=== PATIENT | female | born 1985 | race Caucasian/White ===

== ENCOUNTER 2017-09-07 20:41 | Inpatient (IN) | payer OTHER ==
[~2017-09-07] VITALS: Ht 167.6 cm; Wt 63.2 kg
[2017-09-08] VITALS (13 sets, daily range): BP systolic 85–113; BP diastolic 54–79; PULSE 65–104; RESP 13–23; TEMP 98–100.4; O2SAT 13–99
--- NOTE | 2017-09-08 00:59 | HHI.HP ---
HPI Service Critical Care Medicine Primary Care Physician No Primary Care Physician Admission Diagnosis Diagnosis: Travel History International Travel<30 Days: No Contact w/Intl Traveler <30 Da: No Traveled to Known Affected Are: No History of Present Illness Records reviewed from outside hospital. 32-year-old female with history of IV drug use (heroin), cocaine abuse , prior seizure while in incarceration who presented to [facility] complaining of 2 day history of fever and back pain. She states she has been febrile for 2 days with temperature up to 104.8 yesterday. Her temp at outside hospital was 99.8. She complains of diffuse myalgias, "hurting all over", headache, dizziness, nausea, nonproductive cough, pain in her lower lumbar spine radiating to her right sacrum and down her right leg. She denies dysuria. She has had 2 episodes of diarrhea on 09/04, one episode in which she had fecal incontinence. No urinary incontinence, no saddle parasthesias. She feels her right calf is swollen. She states she had a seizure on July 24, 2017 while she was incarcerated. She is concerned that she was never evaluated for it. She said "they told me I would just stood up too fast". She was released from incarceration 09/04. She began to feel ill on that day and was hospitalized at [facility] from 09/04-09/07 during which time she say she had a CT brain. Results unknown. She left AMA. Today she presented to [facility] where workup demonstrated pancytopenia with white blood cell count of 1.7, hemoglobin 8.8, platelets 109. CRP is elevated at 27,ESR 58. Coags were normal. Urine drug screen positive for opiates, benzos, cocaine. Urinalysis negative for markers of infection, negative protein, negative ketones. TSH was normal at 2.6. Chest x-ray was negative electrolytes were normal and creatinine is 0.71. Glucose 92. AST mildly elevated at 46 but ALT and alkaline phosphatase normal. Pro-BNP 349. test negative. Blood culture was sent. she was tachycardic at 107 at outside hospital blood pressure was 127/85.b She received vancomycin 1 g IV, Zosyn 3.375 g IV, morphine 4 mg IV , Zofran 8 mg p.o at [facility]. Review of Systems Constitutional: COMPLAINS OF: Fever Respiratory: COMPLAINS OF: Cough Gastrointestinal: COMPLAINS OF: Diarrhea, Nausea Musculoskeletal: COMPLAINS OF: Muscle aches, Back pain, Neck pain Neurologic: COMPLAINS OF: Headache Past Family Social History Allergies: Coded Allergies: No Known Allergies (Unverified , 09/08/17) Past Medical History Hypertension Depression Sciatica affecting right lower extremity Heroin abuse Cocaine abuse "Arthritis left knee" Past Surgical History section ORIF left knee with repair of ligamentous injury with cadaveric ligament I&D of abscess on right leg in 2016 Reported Medications Xanax 2 mg p.o. twice daily Oxycodone 50 mill grams p.o. 3 times daily Lexapro 10 mg p.o. daily Amlodipine dose unknown HCTZ 25 mill grams p.o. daily Flexeril 10 mg p.o. daily Family History Patient denies significant family medical history Social History Smokes 1/4 pack of cigarettes per day History of IV drug use. She told me that her last drug use was in May. She disclosed to the nurse that she has been using IV drugs since she was released from incarceration Urine drug screen at outside hospital was positive for opiates, benzodiazepines , cocaine Incarcerated from May 04 - September 04, 2017 Physical Exam Physical Exam GENERAL: Well-nourished, well-developed patient who is alert and interactive, sitting up in ISC bed. SKIN: Warm and dry. No rash noted. No abscess. HEAD: Atraumatic. Normocephalic. EYES: Pupils equal and round, 2 mm reactive. No scleral icterus. No injection or drainage. ENT: No nasal bleeding or discharge. Mucous membranes pink and moist. NECK: Trachea midline. No JVD. CARDIOVASCULAR: Regular rate and rhythm. No murmurs rubs or gallops. RESPIRATORY: No accessory muscle use. Clear to auscultation. Breath sounds equal bilaterally. On room air GASTROINTESTINAL: Abdomen soft, non-tender, nondistended. Bowel sounds present MUSCULOSKELETAL: Extremities without clubbing, cyanosis.. No obvious deformities. There is tenderness midline over spine at L4-L5 and right sacrum. There is no warmth, erythema, induration mass. Perhaps a trace edema of the right calf or ankle. NEUROLOGICAL: Awake and alert. Oriented 3. No obvious cranial nerve deficits. Strength 5 out of 5 throughout all extremities including normal strength at hip flexion, ankle plantar and dorsiflexion and dorsiflexion of first toe. DTRs are intact bilaterally.. No saddle paresthesias. Perineal sensation is intact. Laboratory Laboratory Tests Test 09/08/17 00:00 Septic Shock Reassessment Septic shock perfusion: reassessment completed Caprini VTE Risk Assessment Caprini VTE Risk Assessment: Mod/High Risk (score >= 2) VTE Pharm Contraindication: Documented Caprini Risk Assessment Model Point Value = 1 Point Value = 2 Point Value = 3 Point Value = 5 Age 41-60 Minor surgery BMI > 25 kg/m2 Swollen legs Varicose veins or History of unexplained or recurrent spontaneous Oral contraceptives or hormone replacement Sepsis (< 1 month) Serious lung disease, including pneumonia (< 1 month) Abnormal pulmonary function Acute myocardial infarction Congestive heart failure (< 1 month) History of inflammatory bowel disease Medical patient at bed rest Age 61-74 Arthroscopic surgery Major open surgery (> 45 min) Laparoscopic surgery (> 45 min) Malignancy Confined to bed (> 72 hours) Immobilizing plaster cast Central venous access Age >= 75 History of VTE Family history of VTE Factor V Leiden Prothrombin [id number] Lupus anticoagulant Anticardiolipin antibodies Elevated serum homocysteine Heparin-induced thrombocytopenia Other congenital or acquired thrombophilia Stroke (< 1 month) Elective arthroplasty Hip, pelvis, or leg fracture Acute spinal cord injury (< 1 month) Prophylaxis Regimen Total Risk Factor Score Risk Level Prophylaxis Regimen 0-1 Low Early ambulation 2 Moderate Order ONE of the following: *Sequential Compression Device (SCD) *Heparin 5000 units SQ BID 3-4 Higher Order ONE of the following medications: *Heparin 5000 units SQ TID *Enoxaparin/Lovenox 40 mg SQ daily (WT < 150 kg, CrCl > 30 mL/min) *Enoxaparin/Lovenox 30 mg SQ daily (WT < 150 kg, CrCl > 10-29 mL/min) *Enoxaparin/Lovenox 30 mg SQ BID (WT < 150 kg, CrCl > 30 mL/min) AND/OR *Sequential Compression Device (SCD) 5 or more Highest Order ONE of the following medications: *Heparin 5000 units SQ TID (Preferred with Epidurals) *Enoxaparin/Lovenox 40 mg SQ daily (WT < 150 kg, CrCl > 30 mL/min) *Enoxaparin/Lovenox 30 mg SQ daily (WT < 150 kg, CrCl > 10-29 mL/min) *Enoxaparin/Lovenox 30 mg SQ BID (WT < 150 kg, CrCl > 30 mL/min) AND *Sequential Compression Device (SCD) Assessment and Plan Assessment and Plan NEURO: Opioid abuse Cocaine abuse Benzodiazepine abuse Remote seizure Back pain Sciatica Anxiety Continue home medications of Flexeril 10 mg p.o. daily, oxycodone 15 mg p.o. every 8 hours. Will adjust Xanax is 1 mg p.o. every 8 hours with hold orders based on mental status. Hold Lexapro Will obtain MRI brain given remote history of seizure however this seizure may well of been related to stimulant abuse or benzodiazepine withdrawal. Obtain MRI spine to evaluate for evidence of epidural abscess. Empiric antibiotics as per below RESP: Tobacco abuse On room air Chest x-ray outside hospital negative CV: Essential hypertension Hold HCTZ for now. Hold Norvasc 5 mg po daily Bolus 1 L normal saline. Glucose is low. Placed on D5 NS with 20 mg of KCl per liter at 100 mL/h. 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 FEN/RENAL: Voiding CPK is normal ID: Receive Zosyn and vancomycin at outside hospital. We will continue cefepime/ vancomycin. Follow-up blood cultures and at outside hospital. Repeat blood cultures have been sent here. HEME: Pancytopenia Complains of swelling right lower extremity. Ultrasound right lower extremity Recheck coags and fibrinogen which are in normal limits. ENDO: Euglycemic. TSH at outside hospital was normal PROPH: SCDs for DVT prophylaxis. Avoid pharmacology DVT prophylaxis at this time due to thrombocytopenia and workup for epidural abscess. Famotidine po for stress ulcer prophylaxis ACCESS: Peripheral IV providing adequate access at this time Full code Level 3 H&P Code Status Full code Brianna Rodrigues MD September 08, 2017 00:59 Ayaz Dean MD September 08, 2017 06:39
[2017-09-08] MEDS ORDERED: SODIUM CHLOR 0.9% 1000 ML INJ 1,000 ML IV SCH (01:50)
[2017-09-08] MEDS ORDERED: SENNOSIDES 8.6 MG TAB PO PRN (02:00)
[2017-09-08] MEDS ORDERED: ACETAMINOPHEN 325 MG TAB PO PRN (02:00)
[2017-09-08] MEDS ORDERED: NURSING INFORMATION XX SCH (02:00)
[2017-09-08] MEDS ORDERED: BISACODYL 10 MG SUPP RECTAL PRN (02:00)
[2017-09-08] MEDS ORDERED: LACTULOSE SYRUP 20 GM/30 ML CUP PO PRN (02:00)
[2017-09-08] MEDS ORDERED: MAGNESIUM HYDROXIDE SUSP 30 ML CUP PO PRN (02:00)
[2017-09-08] MEDS ORDERED: RESP: ALBUTEROL 2.5 MG/IPRATROPIUM 0.5 MG NEB (PRN) INH (02:00)
[2017-09-08] MEDS ORDERED: CHLORHEXIDINE GLUCONATE 2 % 1 PACK (2 CLOTHS) TOP PRN (02:00)
[2017-09-08] MEDS ORDERED: Vancomycin Consult Pharmacy 1 EA OTHER SCH (02:15)
[2017-09-08] MEDS: ALPRAZolam 1 MG TAB PO SCH ×3 (02:27→19:48)
[2017-09-08] MEDS: CEFEPIME INJ 2,000 MG in SODIUM CHLORIDE 0.9% INJ 100 ML IV SCH ×3 (03:17→19:49)
[2017-09-08] MEDS: CHLORHEXIDINE GLUCONATE 2 % 1 PACK (2 CLOTHS) TOP SCH (03:17)
[2017-09-08 03:41] LABS: ALBUMIN 3.5 GM/DL (3.4-5.0); ALT (GPT) 39 U/L (10-53); AST (GOT) 46 U/L (15-37); BICARBONATE 27.2 MEQ/L (21.0-32.0); BLOOD UREA NITROGEN 7 MG/DL (7-18); CALCIUM 8.3 MG/DL (8.5-10.1); CHLORIDE 102 MEQ/L (98-107); CREATININE 0.82 MG/DL (0.50-1.00); GLOMERULAR FILTRATION RATE 82 ML/MIN (>89); GLUCOSE,RANDOM 69 MG/DL (74-106); MAGNESIUM 2.2 MG/DL (1.5-2.5); SODIUM (NA) 138 MEQ/L (136-145)
[2017-09-08 03:44] LABS: ALKALINE PHOSPHATASE 63 U/L (45-117); PHOSPHORUS 4.5 MG/DL (2.5-4.9); TOTAL BILIRUBIN ADULT 0.3 MG/DL (0.2-1.0)
[2017-09-08] MEDS ORDERED: DEXTROSE 50% IN WATER 50 ML VIAL(D50) IV PUSH ONE (04:00)
[2017-09-08] MEDS: D5-NS + KCL 20 MEQ INJ 1,000 ML IV SCH ×2 (04:25→14:00)
[2017-09-08] MEDS ORDERED: SODIUM CHLOR 0.9% 1000 ML INJ 1,000 ML IV ONE (05:30)
[2017-09-08 05:57] LABS: BASOPHIL % 0.4 % (0.0-2.0); EOSINOPHIL % 1.4 % (0.0-4.0); HEMATOCRIT 21.7 % (35.0-46.0); HEMOGLOBIN 7.5 GM/DL (11.6-15.3); LYMPH % 38.5 % (9.0-44.0); LYMPHOCYTE # 0.8 TH/MM3 (1.0-4.8); MEAN CELL VOLUME 87.4 FL (80.0-100.0); MEAN CORPUSCULAR HEMOGLOBIN 30.1 PG (27.0-34.0); MEAN CORPUSCULAR HGB CONC 34.5 % (32.0-36.0); MEAN PLATELET VOLUME 8.9 FL (7.0-11.0); MONO % 13.1 % (0.0-8.0); MONOCYTE # 0.3 TH/MM3 (0-0.9); NEUT % 46.6 % (16.0-70.0); PLATELET COUNT 127 TH/MM3 (150-450); RED BLOOD COUNT 2.48 MIL/MM3 (4.00-5.30); RED CELL DISTRIBUTION WIDTH 13.6 % (11.6-17.2); WHITE BLOOD COUNT 2.1 TH/MM3 (4.0-11.0)
[2017-09-08] MEDS ORDERED: CYCLOBENZAPRINE HCL 10 MG TAB PO SCH (06:00)
[2017-09-08 06:06] LABS: RETIC # 68.5 MIL/L (20.0-150.0); RETIC % 2.7 % (0.4-3.0)
--- NOTE | 2017-09-08 06:18 | HHI.CCPN ---
Subjective Remarks/Hospital Course 32-year-old female with history of IV drug use (heroin), cocaine abuse , prior seizure while in incarceration who presented to [facility] complaining of 2 day history of fever and back pain. She states she has been febrile for 2 days with temperature up to 104.8 yesterday. Her temp at outside hospital was 99.8. She complains of diffuse myalgias, "hurting all over", headache, dizziness, nausea, nonproductive cough, pain in her lower lumbar spine radiating to her right sacrum and down her right leg. She denies dysuria. She has had 2 episodes of diarrhea on 09/04, one episode in which she had fecal incontinence. No urinary incontinence, no saddle parasthesias. She feels her right calf is swollen. She states she had a seizure on July 24, 2017 while she was incarcerated. She is concerned that she was never evaluated for it. She said "they told me I would just stood up too fast". She was released from incarceration 09/04. She began to feel ill on that day and was hospitalized at [facility] from 09/04-09/07 during which time she say she had a CT brain. Results unknown. She left AMA. Today she presented to [facility] where workup demonstrated pancytopenia with white blood cell count of 1.7, hemoglobin 8.8, platelets 109. CRP is elevated at 27,ESR 58. Coags were normal. Urine drug screen positive for opiates, benzos, cocaine. Urinalysis negative for markers of infection, negative protein, negative ketones. TSH was normal at 2.6. Chest x-ray was negative electrolytes were normal and creatinine is 0.71. Glucose 92. AST mildly elevated at 46 but ALT and alkaline phosphatase normal. Pro-BNP 349. test negative. Blood culture was sent. she was tachycardic at 107 at outside hospital blood pressure was 127/85.b She received vancomycin 1 g IV, Zosyn 3.375 g IV, morphine 4 mg IV , Zofran 8 mg p.o at [facility]. SUBJECTIVE: 09/08: Currently requesting oxycodone frequently. Does not appear to be in pain. Appears to be neurologically intact but falls asleep very easily. Very confusing subjectively weaker on right upper lower extremity on my examination. Did not identify track joy briefly. Afebrile. Awaiting MRI scans and ultrasound scans Objective Vital Signs Date Time Temp Pulse Resp B/P (MAP) Pulse Ox O2 Delivery O2 Flow Rate FiO2 09/08/17 02:00 78 09/08/17 00:00 99.3 23 101/62 (75 97 Result Diagram: 09/08/17 0527 09/08/17 0256 Other Results Microbiology Date/Time Source Procedure Growth Status 09/08/17 04:40 Blood Peripheral Aerobic Blood Culture Pending Received 09/08/17 04:40 Blood Peripheral Anaerobic Blood Culture Pending Received Objective Remarks GENERAL: 32-year-old female currently resting in bed in no acute distress in room air SKIN: Warm and dry. Do not appreciate any puncture joy or subcutaneous abscesses HEAD: Atraumatic. Normocephalic. EYES: Pupils equal and round about 2 mm bilaterally reactive to 1. No scleral icterus. No injection or drainage. ENT: No nasal bleeding or discharge. Mucous membranes pink and moist. Oropharynx without erythema NECK: Trachea midline. No JVD. CARDIOVASCULAR: Regular rate and rhythm. S1, S2 no S4. 1/6 murmur right-sided. RESPIRATORY: Clear to auscultation. Breath sounds equal bilaterally. GASTROINTESTINAL: Abdomen soft, non-tender, nondistended. Hypoactive bowel sounds are appreciated MUSCULOSKELETAL: Extremities with trace right upper extremity edema edema. No obvious deformities. NEUROLOGICAL: Awake and alert but falls asleep easily. Requesting benzodiazepines and opiates frequently.. No obvious cranial nerve deficits. Definitely pronator drift. Right upper lower extremity strength 4-5.. Left side upper lower extremity 5 out of 5. Normal sensation. Gait not assessed. Positive pronator drift bilaterally but difficult assessment. Urinary Catheter: No Assessment to: Continue Vascular Central Line Catheter: No Assessment to: Continue A/P Assessment and Plan NEURO/PSYCH: Depression/anxiety Opioid chronic use/abuse Cocaine abuse Benzodiazepine chronic use/abuse Remote seizure Chronic low back pain Sciatica Home medications include alprazolam 2 mg p.o. twice daily, oxycodone 50? twice daily and cyclobenzaprine 10 mg 3 times daily Currently acetaminophen 600 mg p.o. every 6 hours. Fever Currently on cyclobenzaprine 10 mg p.o. every 8 hours muscle relaxant Currently on oxycodone 15 mg p.o. every 8 hours as needed pain management On alprazolam 1 mg every 8 hours scheduled Holding escitalopram 10 mg p.o. daily/home medication for depression as good possible lower seizure threshold. MRI brain currently pending RESP: Tobacco abuse Nasal cannula to maintain saturations greater than or equal to 92% Incentive spirometry while awake As needed albuterol aerosols every 2 hours as needed dyspnea Tobacco cessation self-evaluation provided the patient On room air Chest x-ray outside hospital negative reported for cardiopulmonary disease CV: Essential hypertension Lactic acidosis -resolved Home medications include amlodipine unknown dose and hydrochlorothiazide Follow-up on EKG Follow-up 2D echo Currently D5 normal saline with 20 mEq of potassium chloride 100 cc an hour GI: Diarrhea AST elevation NPO except for medication Recheck CMP and lipase Famotidine for GI prophylaxis Docusate sodium/senna 1 tablet twice daily for bowel regimen 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 /RENAL: Creatinine currently within normal limits Monitor urine output Accurate I's and O's No indication for [place] catheter ID: Sepsis Receive piperacillin/tazobactam and vancomycin at outside hospital. We will continue cefepime/vancomycin and appropriate renal dose. Blood cultures 2 09/08 pending UA pending HEME: Leukopenia Normocytic anemia Thrombocytopenia Monocytosis Complains of swelling right lower extremity. Ultrasound right lower extremity Peripheral smear currently pending Fibrinogen normal. Check PT/INR/PTT Haptoglobin 208. LDH pending ENDO: Euglycemic. TSH at outside hospital was within normal limits reported MSK: PT evaluate and treat FEN: Replace electrolytes as clinically indicated PROPH: SCDs for DVT prophylaxis. Avoid pharmacology DVT prophylaxis at this time due to thrombocytopenia. ACCESS: Peripheral IV providing adequate access at this time Patient is stable from a critical care medicine standpoint. We will assign care to hospitalist in a.m. 09/09/2017. Will follow up on MRI scans today which are ordered stat. If abscess present will transfer to Ayaz Chaudhari MD September 08, 2017 06:18
[2017-09-08] MEDS ORDERED: RESP: ALBUTEROL 2.5 MG/3 ML NEB (PRN) NEB (06:45)
[2017-09-08] MEDS ORDERED: LACTATED RINGER'S 1000 ML INJ 1,000 ML IV ONE (07:00)
[2017-09-08 08:31] LABS: INTERNATIONAL NORMALIZED RATIO 1.1 RATIO
--- NOTE | 2017-09-08 08:38 | RADRPT ---
EXAM DATE: 09/08/2017 8:34 AM EDT AGE/SEX: 32 years / Female INDICATIONS: Right leg pain. CLINICAL DATA: This is the patient's initial encounter. Patient reports that signs and symptoms have been present for 1 day and indicates a pain score of 0/10. MEDICAL/SURGICAL HISTORY: . Seizures. HTN. GERD. . section. Tubal ligation. Knee french rgery. COMPARISON: No prior [place] exams available for comparison. No external comparison. TECHNIQUE: Venous ultrasound of both lower extremities was performed from the inguinal ligament to t he proximal calf. Real-time, color Doppler and spectral tracing, compression and augmentation techni ques were used. FINDINGS: There is normal compressibility of the deep venous system from the inguinal region to the proximal ca lf. No echogenic clot is seen in the lumen of the common femoral, femoral, popliteal, and posterior tibial veins. There is a normal response of the venous system to proximal and distal augmentation an d respiration. CONCLUSION: No evidence of DVT. Electronically signed by: Lencho Obando MD 09/08/2017 8:37 AM EDT
[2017-09-08] MEDS: SODIUM CHLORIDE 0.9% FLUSH 10 ML FLUSH IV FLUSH SCH ×2 (08:43→20:47)
[2017-09-08 08:57] LABS: TROPONIN I LESS THAN 0.02 NG/ML (0.02-0.05)
[2017-09-08] MEDS ORDERED: amLODIPine BESYLATE 5 MG TAB PO SCH (09:00)
[2017-09-08] MEDS: DOCUSATE SODIUM 50 MG/SENNA 8.6 MG TAB PO SCH ×2 (09:17→19:48)
[2017-09-08] MEDS: FAMOTIDINE 20 MG TAB PO SCH ×2 (09:17→19:48)
[2017-09-08] MEDS: VANCOMYCIN 1,000 MG/NS 250 ML IV SCH ×4 (09:17→20:46)
--- NOTE | 2017-09-08 09:25 | RADRPT ---
EXAM DATE: 09/08/2017 9:06 AM EDT AGE/SEX: 32 years / Female INDICATIONS: Short of breath CLINICAL DATA: This is the patient's initial encounter. Patient reports that signs and symptoms have been present for 1 day and indicates a pain score of Nonresponsive. MEDICAL/SURGICAL HISTORY: Hypertension. seizure, iv drug abuse section. ORIF left kne e COMPARISON: No prior [place] exams available for comparison. FINDINGS: Patchy airspace disease in the left lower lung zone. Cardiomegaly small contours are within normal li mits. Bony thorax is intact. CONCLUSION: 1. Minimal patchy airspace disease in the left lower lung zone which may be atelectasis. However, de veloping pneumonia cannot be excluded in the appropriate clinical setting. If there is continued clin ical uncertainty, consider formal PA and lateral views of the chest with maximal inspiratory effort. Electronically signed by: Rich Schmid MD 09/08/2017 9:23 AM EDT
[2017-09-08] MEDS ORDERED: GADODIAMIDE PF 287 MG/ML 5 ML VIAL (for RAD MRI) IVCONTRAST ONE (11:09)
--- NOTE | 2017-09-08 11:26 | RADRPT ---
EXAM DATE: 09/08/2017 11:19 AM EDT AGE/SEX: 32 years / Female INDICATIONS: Abscess. CLINICAL DATA: This is the patient's subsequent encounter. Patient reports that signs and symptoms h ave been present for 2 days and indicates a pain score of 6/10. MEDICAL/SURGICAL HISTORY: Hypertension. section. Tubal ligation. knee COMPARISON: No prior [place] exams available for comparison. No external comparison. TECHNIQUE: Multiplanar, multisequence MRI examination of the cervical spine was performed without an d with 13 ml Omniscan (gadodiamide) contrast as a single exam dose. FINDINGS: Mild disc bulges present between C3 and C5. Normal alignment. No fracture or spondylolisthesis. There is no cervical canal stenosis. No cord impingement or cord edema. Postcontrast no abnormal enhancing lesions are seen within the cervical spine. No epidural fluid mandy ections. CONCLUSION: 1. Unremarkable cervical spine MRI with and without contrast. Electronically signed by: Dez Salinas MD 09/08/2017 11:25 AM EDT
--- NOTE | 2017-09-08 11:29 | RADRPT ---
EXAM DATE: 09/08/2017 11:16 AM EDT AGE/SEX: 32 years / Female INDICATIONS: Abscess. CLINICAL DATA: This is the patient's subsequent encounter. Patient reports that signs and symptoms h ave been present for 2 days and indicates a pain score of 6/10. MEDICAL/SURGICAL HISTORY: Hypertension. section. Tubal ligation. knee surgery COMPARISON: No prior [place] exams available for comparison. No external comparison. TECHNIQUE: Multiplanar, multisequence MRI of the thoracic spine was performed without and with 13 ml Omniscan (gadodiamide) contrast as a single exam dose. FINDINGS: No abnormal enhancing lesions are seen within the thoracic spine postcontrast. Alignment is within normal limits. There are no discrete disc protrusions. No canal or significant fo raminal stenosis. No acute fracture or spondylolisthesis. CONCLUSION: 1. No acute findings. No epidural fluid collections. MRI thoracic spine with and without contrast wi thin normal limits for age. Electronically signed by: Dez Salinas MD 09/08/2017 11:27 AM EDT
--- NOTE | 2017-09-08 11:40 | RADRPT ---
EXAM DATE: 09/08/2017 11:33 AM EDT AGE/SEX: 32 years / Female INDICATIONS: Seizures. CLINICAL DATA: This is the patient's subsequent encounter. Patient reports that signs and symptoms h ave been present for 2 days and indicates a pain score of 6/10. MEDICAL/SURGICAL HISTORY: Hypertension. section. Tubal ligation. knee surgery COMPARISON: No prior [place] exams available for comparison. TECHNIQUE: Multiplanar, multisequence examination of the brain was performed without contrast. FINDINGS: No intracranial mass, hemorrhage or shift. No hydrocephalus. No abnormal extra-axial fluid collection s are present. There is no evidence for recent infarction. Sella is normal. Visualized sinuses are clear except for some mucosal thickening in the left maxillary sinus. CONCLUSION: 1. No acute intracranial abnormalities. Left maxillary sinus mucosal thickening. Electronically signed by: Dez Salinas MD 09/08/2017 11:39 AM EDT
--- NOTE | 2017-09-08 12:07 | RADRPT ---
EXAM DATE: 09/08/2017 12:00 PM EDT AGE/SEX: 32 years / Female INDICATIONS: Abscess. CLINICAL DATA: This is the patient's subsequent encounter. Patient reports that signs and symptoms h ave been present for 2 days and indicates a pain score of 2/10. MEDICAL/SURGICAL HISTORY: Hypertension. section. Tubal ligation. knee surgery COMPARISON: No prior exams available for comparison. TECHNIQUE: Multiplanar, multisequence MRI examination of the lumbar spine was performed without and with 13 ml Omniscan (gadodiamide) contrast as a single exam dose. FINDINGS: The most caudal-appearing lumbar vertebra is numbered as L5. VERTEBRA: Homogeneous signal. Normal alignment. There is disc dehydration at L4-5 and L5-S1. No com pression fracture injuries are demonstrated. No abnormal bone marrow edema is demonstrated. No parasp inal soft tissue swelling. CONUS: Normal level and configuration. POST-CONTRAST: No abnormal areas of contrast enhancement are seen. T12-L1: The thecal sac has a normal diameter. No evidence of disc bulge or protrusion. The neural foramina are patent bilaterally. L1-L2: The thecal sac has a normal diameter. No evidence of disc bulge or protrusion. The neural foramina are patent bilaterally. L2-L3: The thecal sac has a normal diameter. No evidence of disc bulge or protrusion. The neural foramina are patent bilaterally. L3-L4: The thecal sac has a normal diameter. No evidence of disc bulge or protrusion. The neural foramina are patent bilaterally. L4-L5: Mild broad-based and left lateral bulging with mild narrowing of the left neural foramina. T he right neural foramina is patent. There is bilateral facet arthritis. L5-S1: Mild focal central bulging with some mild left lateral bulging. The neural foramina are gomez nt bilaterally. Mild facet arthritis. CONCLUSION: 1. There is mild broad-based bulging and left lateral bulging at L4-5. 2. Mild focal central bulging with some mild left lateral bulging at L5-S1 3. There is disc dehydration at L4-5 and L5-S1. Electronically signed by: Femi Silveira MD 09/08/2017 12:06 PM EDT
[2017-09-08] MEDS: SODIUM CHLORIDE 0.9% FLUSH 10 ML FLUSH IV FLUSH PRN (19:48)
[2017-09-08] MEDS ORDERED: ACETAMINOPHEN 1000 MG/100 ML 100 ML IV SCH (22:45)
[2017-09-09] VITALS: BP 108/51; PULSE 105; RESP 18; TEMP 100.5; O2SAT 94
[2017-09-09] MEDS: ALPRAZolam 1 MG TAB PO SCH ×3 (02:15→18:09)
[2017-09-09] MEDS: CEFEPIME INJ 2,000 MG in SODIUM CHLORIDE 0.9% INJ 100 ML IV SCH ×3 (03:20→18:10)
[2017-09-09] MEDS: CHLORHEXIDINE GLUCONATE 2 % 1 PACK (2 CLOTHS) TOP SCH (04:00)
--- NOTE | 2017-09-09 07:26 | EKG ---
Date Performed: 09/08/2017 Time Performed: 08:30:42 PTAGE: 32 years EKG: Sinus rhythm NORMAL ECG NO PREVIOUS TRACING DOCTOR: Jose L Perez Interpretating Date/Time 09/09/2017 07:21:48
[2017-09-09 08:00] VITALS: BP 96/79; PULSE 77; RESP 21; TEMP 98.9; O2SAT 93
[2017-09-09] MEDS: CYCLOBENZAPRINE HCL 10 MG TAB PO SCH (08:20)
[2017-09-09] MEDS: FAMOTIDINE 20 MG TAB PO SCH ×2 (08:21→21:19)
[2017-09-09] MEDS: DOCUSATE SODIUM 50 MG/SENNA 8.6 MG TAB PO SCH ×2 (08:21→21:20)
[2017-09-09] MEDS: SODIUM CHLORIDE 0.9% FLUSH 10 ML FLUSH IV FLUSH SCH ×2 (08:22→21:20)
[2017-09-09] MEDS: VANCOMYCIN 1,000 MG/NS 250 ML IV SCH ×4 (08:22→21:00)
[2017-09-09] MEDS ORDERED: PHARMACY ORDERED LAB ONE ×2 (08:45→20:45)
[2017-09-09] MEDS: D5-NS + KCL 20 MEQ INJ 1,000 ML IV SCH ×3 (10:00→21:20)
[2017-09-09 12:11] VITALS: BP 102/62; PULSE 76; RESP 16; TEMP 97.8; O2SAT 93
--- NOTE | 2017-09-09 13:14 | HHI.PR ---
Subjective Remarks Primary complaint today is pain. Fevers are present overnight. Patient is on cefepime and vancomycin. Possible pneumonia on imaging. Patient is being evaluated for infective endocarditis. She is at risk for infective endocarditis due to IV drug abuse. Objective Vital Signs Date Time Temp Pulse Resp B/P (MAP) Pulse Ox O2 Delivery O2 Flow Rate FiO2 09/09/17 12:11 97.8 76 16 102/62 (75) 93 09/09/17 08:00 98.9 77 21 96/79 (85) 93 09/09/17 07:59 Room Air 09/09/17 00:00 100.5 105 18 108/51 (70) 94 09/08/17 22:00 104 09/08/17 20:00 95 Room Air 09/08/17 20:00 96 09/08/17 20:00 100.3 96 20 106/60 (75) 95 09/08/17 18:00 84 09/08/17 16:00 98.8 85 13 94/58 (70) 96 09/08/17 16:00 84 09/08/17 14:00 97 09/08/17 13:38 10 I/O 09/08/17 09/08/17 09/08/17 09/09/17 09/09/17 09/09/17 07:00 15:00 23:00 07:00 15:00 23:00 Intake Total 356 ml 1250 ml 930 ml 1200 ml Balance 356 ml 1250 ml 930 ml 1200 ml Intake Oral 480 ml 1000 ml IV Total 356 ml 1250 ml 450 ml 200 ml # Voids 1 1 4 # Bowel Movements 0 0 0 Result Diagram: 09/08/17 0527 09/08/17 0256 Objective Remarks GENERAL: NAD, A&Ox3 HEAD: Normocephalic. NECK: Supple, trachea midline. No lymphadenopathy. EYES: No scleral icterus. No injection or drainage. CARDIOVASCULAR: Regular rate and rhythm without murmurs, gallops, or rubs. RESPIRATORY: Breath sounds equal bilaterally. No accessory muscle use. GASTROINTESTINAL: Abdomen soft, non-tender, nondistended. MUSCULOSKELETAL: No cyanosis, or edema. SKIN: Warm and dry. NEURO: No focal neurological deficitis. A/P Problem List: (1) Sepsis ICD Code: A41.9 - Sepsis, unspecified organism Assessment and Plan 32-year-old female admitted secondary to sepsis. Sepsis Infective endocarditis suspected Pneumonia present, possible septic emboli Continue cefepime Continue vancomycin Echocardiogram pending Continue pain treatments as needed IV drug abuse history Opioid abuse history Cocaine abuse history Benzodiazepine abuse history Monitor for withdrawals Screen for hepatitis C Patient declines HIV screening Depression/anxiety Opioid chronic use/abuse Cocaine abuse Benzodiazepine chronic use/abuse Remote seizure Likely drug abuse related Follow clinically Chronic low back pain Sciatica Follow clinically Tobacco abuse Patient counseled to quit smoking Essential hypertension Follow BP Low BPs presently Holding amlodipine and HCTZ Diarrhea Resolved Follow for recurrence AST elevation Follow LFTs Hep C screen Leukopenia Normocytic anemia Thrombocytopenia Monocytosis Improving Follow CBC Treat infection, as above DVT Prophylaxis SCDs Consider anticoagulation once stabilized and bleed risks decline Don Garcia MD September 09, 2017 13:14
[2017-09-09 15:53] VITALS: BP 104/63; PULSE 76; RESP 20; TEMP 98.6; O2SAT 95
[2017-09-09 17:18] LABS: AUTOMATED NEUTROPHIL # 0.6 TH/MM3 (1.8-7.7); BASOPHIL % 0.5 % (0.0-2.0); EOSINOPHIL % 2.2 % (0.0-4.0); HEMATOCRIT 23.1 % (35.0-46.0); HEMOGLOBIN 7.8 GM/DL (11.6-15.3); LYMPH % 45.9 % (9.0-44.0); LYMPHOCYTE # 0.8 TH/MM3 (1.0-4.8); MEAN CELL VOLUME 87.5 FL (80.0-100.0); MEAN CORPUSCULAR HEMOGLOBIN 29.5 PG (27.0-34.0); MEAN CORPUSCULAR HGB CONC 33.7 % (32.0-36.0); MEAN PLATELET VOLUME 8.6 FL (7.0-11.0); MONO % 17.1 % (0.0-8.0); MONOCYTE # 0.3 TH/MM3 (0-0.9); NEUT % 34.3 % (16.0-70.0); PLATELET COUNT 161 TH/MM3 (150-450); RED BLOOD COUNT 2.64 MIL/MM3 (4.00-5.30); RED CELL DISTRIBUTION WIDTH 13.7 % (11.6-17.2); WHITE BLOOD COUNT 1.7 TH/MM3 (4.0-11.0)
[2017-09-09 17:36] LABS: BICARBONATE 29.7 MEQ/L (21.0-32.0); CALCIUM 8.1 MG/DL (8.5-10.1); CREATININE 0.56 MG/DL (0.50-1.00); MAGNESIUM 2.6 MG/DL (1.5-2.5); PHOSPHORUS 4.4 MG/DL (2.5-4.9)
[2017-09-09 17:43] LABS: BANDS 2 % (0-6); LYMPHOCYTES 49 % (9-44); MONOCYTES 11 % (0-8); NEUTROPHIL # MANUAL DIFF 0.7 TH/MM3 (1.8-7.7); OVALOCYTES 1+ (NORMAL); POLYS (SEG NEUTROPHILS) 37 % (16-70)
[2017-09-09 19:34] VITALS: O2SAT 94
[2017-09-09 20:29] VITALS: BP 120/62; RESP 20; TEMP 98
[2017-09-10] VITALS (8 sets, daily range): BP systolic 105–124; BP diastolic 57–79; PULSE 85–102; RESP 16–20; TEMP 98–99.3; O2SAT 93–99
[2017-09-10] MEDS: ALPRAZolam 1 MG TAB PO SCH ×3 (02:15→17:42)
[2017-09-10] MEDS: SODIUM CHLORIDE 0.9% FLUSH 10 ML FLUSH IV FLUSH PRN (02:51)
[2017-09-10] MEDS: CEFEPIME INJ 2,000 MG in SODIUM CHLORIDE 0.9% INJ 100 ML IV SCH ×3 (02:51→17:43)
[2017-09-10] MEDS: CHLORHEXIDINE GLUCONATE 2 % 1 PACK (2 CLOTHS) TOP SCH (04:00)
[2017-09-10] MEDS: D5-NS + KCL 20 MEQ INJ 1,000 ML IV SCH ×2 (06:00→16:00)
[2017-09-10] MEDS: VANCOMYCIN 1,000 MG/NS 250 ML IV SCH ×6 (06:00→21:57)
[2017-09-10 06:51] LABS: BASOPHIL % 0.4 % (0.0-2.0); EOSINOPHIL # 0.1 TH/MM3 (0-0.4); EOSINOPHIL % 2.8 % (0.0-4.0); HEMATOCRIT 26.2 % (35.0-46.0); HEMOGLOBIN 8.9 GM/DL (11.6-15.3); LYMPH % 40.2 % (9.0-44.0); MEAN CELL VOLUME 86.1 FL (80.0-100.0); MEAN CORPUSCULAR HEMOGLOBIN 29.4 PG (27.0-34.0); MEAN CORPUSCULAR HGB CONC 34.2 % (32.0-36.0); MEAN PLATELET VOLUME 9.8 FL (7.0-11.0); MONOCYTE # 0.3 TH/MM3 (0-0.9); NEUT % 43.6 % (16.0-70.0); PLATELET COUNT 128 TH/MM3 (150-450); RED BLOOD COUNT 3.04 MIL/MM3 (4.00-5.30); WHITE BLOOD COUNT 2.4 TH/MM3 (4.0-11.0)
[2017-09-10 07:15] LABS: AST (GOT) 25 U/L (15-37); BLOOD UREA NITROGEN 6 MG/DL (7-18); CALCIUM 8.2 MG/DL (8.5-10.1); CHLORIDE 105 MEQ/L (98-107); CREATININE 0.64 MG/DL (0.50-1.00); GLOMERULAR FILTRATION RATE 109 ML/MIN (>89); GLUCOSE,RANDOM 84 MG/DL (74-106); SODIUM (NA) 141 MEQ/L (136-145)
[2017-09-10 07:18] LABS: ALKALINE PHOSPHATASE 52 U/L (45-117); ALT (GPT) 22 U/L (10-53); TOTAL BILIRUBIN ADULT 0.3 MG/DL (0.2-1.0); TOTAL PROTEIN 6.7 GM/DL (6.4-8.2)
[2017-09-10] MEDS: FAMOTIDINE 20 MG TAB PO SCH ×2 (09:00→21:00)
[2017-09-10] MEDS: SODIUM CHLORIDE 0.9% FLUSH 10 ML FLUSH IV FLUSH SCH ×2 (09:00→21:00)
[2017-09-10] MEDS: DOCUSATE SODIUM 50 MG/SENNA 8.6 MG TAB PO SCH ×2 (09:00→21:28)
[2017-09-10] MEDS: CYCLOBENZAPRINE HCL 10 MG TAB PO SCH (09:00)
--- NOTE | 2017-09-10 10:22 | HHI.PR ---
Subjective Remarks Sepsis appears to be resolving today based on labs and vital signs. Patient has complaint of headache today. Hepatitis C testing is negative. Echocardiogram pending. Objective Vital Signs Date Time Temp Pulse Resp B/P (MAP) Pulse Ox O2 Delivery O2 Flow Rate FiO2 09/10/17 08:00 99.3 90 18 118/79 (92) 95 09/10/17 06:29 98.0 09/10/17 04:00 98.1 102 20 124/74 (91) 93 09/10/17 00:18 98.2 85 19 123/69 (87) 95 09/09/17 20:29 98.0 20 120/62 (81) 09/09/17 19:34 94 09/09/17 19:00 94 Room Air 09/09/17 16:21 09/09/17 15:53 98.6 76 20 104/63 (77) 95 09/09/17 12:11 97.8 76 16 102/62 (75) 93 I/O 09/09/17 09/09/17 09/09/17 09/10/17 09/10/17 09/10/17 06:59 14:59 22:59 06:59 14:59 22:59 Intake Total 1200 ml 1070 ml 1920 ml Balance 1200 ml 1070 ml 1920 ml Intake Oral 1000 ml 720 ml 1920 ml IV Total 200 ml 350 ml # Voids 4 3 4 # Bowel Movements 0 0 Result Diagram: 09/10/17 0449 09/10/17 0641 Objective Remarks GENERAL: NAD, A&Ox3 HEAD: Normocephalic. NECK: Supple, trachea midline. No lymphadenopathy. EYES: No scleral icterus. No injection or drainage. CARDIOVASCULAR: Regular rate and rhythm without murmurs, gallops, or rubs. RESPIRATORY: Breath sounds equal bilaterally. No accessory muscle use. GASTROINTESTINAL: Abdomen soft, non-tender, nondistended. MUSCULOSKELETAL: No cyanosis, or edema. SKIN: Warm and dry. NEURO: No focal neurological deficitis. A/P Problem List: (1) Sepsis ICD Code: A41.9 - Sepsis, unspecified organism Assessment and Plan 32-year-old female admitted secondary to sepsis. Echocardiogram pending to evaluate for infective endocarditis. Continue to monitor for report. Continue antibiotics to treat infection and follow cultures. Morphine provided one time for headache. Zofran started for nausea. Sepsis Infective endocarditis suspected Pneumonia present, possible septic emboli Continue cefepime Continue vancomycin Echocardiogram pending Continue pain treatments as needed IV drug abuse history Opioid abuse history Cocaine abuse history Benzodiazepine abuse history Monitor for withdrawals Screen for hepatitis C Patient declines HIV screening Depression/anxiety Opioid chronic use/abuse Cocaine abuse Benzodiazepine chronic use/abuse Remote seizure Likely drug abuse related Follow clinically Chronic low back pain Sciatica Follow clinically Tobacco abuse Patient counseled to quit smoking Essential hypertension Follow BP Low BPs presently Holding amlodipine and HCTZ Diarrhea Resolved Follow for recurrence AST elevation Follow LFTs Hep C screen Leukopenia Normocytic anemia Thrombocytopenia Monocytosis Improving Follow CBC Treat infection, as above DVT Prophylaxis SCDs Consider anticoagulation once stabilized and bleed risks decline Don Garcia MD September 10, 2017 10:22
[2017-09-10] MEDS ORDERED: MORPHINE SULFATE 4 MG/ML INJ IV PUSH ONE (10:30)
[2017-09-10] MEDS: ONDANSETRON ODT 4 MG TAB PO PRN ×2 (10:49→17:42)
--- NOTE | 2017-09-10 12:59 | ECHRPT ---
Indication: SEPSIS CONCLUSIONS The left ventricular systolic function is normal with an estimated ejection fraction in the range of 60-65%. Normal left ventricular size. Wall thickness is normal. No regional wall motion abnormalities are pr esent. Trace mitral valve regurgitation. There is trace tricuspid valve regurgitation. The estimated pulmonary arterial pressure is 28 mmHg. BP: / HR: Rhythm: Sinus MEASUREMENTS (Male / Female) Normal Values Technical Quality:Good 2D ECHO LV Diastolic Diameter PLAX 3.9 cm 4.2 - 5.9 / 3.9 - 5.3 cm LV Systolic Diameter PLAX 2.6 cm IVS Diastolic Thickness 1.0 cm 0.6 - 1.0 / 0.6 - 0.9 cm LVPW Diastolic Thickness 1.0 cm 0.6 - 1.0 / 0.6 - 0.9 cm LV Relative Wall Thickness 0.5 RV Internal Dim ED PLAX 2.7 cm LVOT Diameter 2.0 cm LA Systolic Diameter LX 2.8 cm 3.0 - 4.0 / 2.7 - 3.8 cm LV Ejection Fraction MOD 4C 65.8 % LV Ejection Fraction 4C AL 66.5 % M-MODE Aortic Root Diameter MM 1.8 cm LA Systolic Diameter MM 2.8 cm LA Ao Ratio MM 1.6 AV Cusp Separation MM 1.8 cm DOPPLER AV Peak Velocity 152.0 cm/s AV Peak Gradient 9.2 mmHg LVOT Peak Velocity 119.0 cm/s LVOT Peak Gradient 5.7 mmHg AV Area Cont Eq pk 2.5 cm MV Area PHT 3.5 cm Mitral E Point Velocity 104.0 cm/s Mitral A Point Velocity 64.2 cm/s Mitral E to A Ratio 1.6 LV E' Lateral Velocity 15.7 cm/s Mitral E to LV E' Lateral Ratio 6.6 LV E' Septal Velocity 11.5 cm/s Mitral E to LV E' Septal Ratio 9.0 TR Peak Velocity 213.0 cm/s TR Peak Gradient 18.1 mmHg Right Atrial Pressure 10.0 mmHg Pulmonary Artery Systolic Pressu 28.1 mmHg Right Ventricular Systolic Press 28.1 mmHg PV Peak Velocity 100.0 cm/s PV Peak Gradient 4.0 mmHg FINDINGS LEFT VENTRICLE The left ventricular systolic function is normal with an estimated ejection fraction in the range of 60-65%. Normal left ventricular size. Wall thickness is normal. No regional wall motion abnormalities are present. RIGHT VENTRICLE Normal right ventricular size and systolic function. LEFT ATRIUM The left atrial size is normal. RIGHT ATRIUM The right atrial size is normal. ATRIAL SEPTUM Normal atrial septal thickness without atrial level shunting by limited color doppler interrogation. AORTA The aortic root and proximal ascending aorta are normal in size on limited imaging. MITRAL VALVE Structurally normal mitral valve. Trace mitral valve regurgitation. AORTIC VALVE Trileaflet aortic valve. No aortic valve stenosis or regurgitation. TRICUSPID VALVE Structurally normal tricuspid valve. There is trace tricuspid valve regurgitation. The estimated pulmonary arterial pressure is 28.1 mmHg. PULMONARY VALVE No pulmonary valve regurgitation or stenosis. VESSELS The inferior vena cava is normal in size. PERICARDIUM No pericardial effusion. Milton Tom MD (Electronically Signed) Final Date:10 Sep 2017 12:58
[2017-09-10] MEDS: NAPROXEN 500 MG TAB PO PRN (17:51)
[2017-09-10] MEDS ORDERED: PHARMACY ORDERED LAB ONE (21:45)
[2017-09-11] VITALS: BP 98/57; PULSE 85; RESP 16; TEMP 98; O2SAT 95
[2017-09-11] MEDS: D5-NS + KCL 20 MEQ INJ 1,000 ML IV SCH (02:00)
[2017-09-11] MEDS: ALPRAZolam 1 MG TAB PO SCH ×2 (02:15→12:33)
[2017-09-11] MEDS: CEFEPIME INJ 2,000 MG in SODIUM CHLORIDE 0.9% INJ 100 ML IV SCH ×2 (02:31→12:34)
[2017-09-11] MEDS: CHLORHEXIDINE GLUCONATE 2 % 1 PACK (2 CLOTHS) TOP SCH (02:45)
[2017-09-11 04:00] VITALS: BP 117/79; PULSE 89
[2017-09-11] MEDS: VANCOMYCIN 1,000 MG/NS 250 ML IV SCH ×4 (05:03→12:37)
[2017-09-11 05:26] LABS: BASOPHIL % 0.5 % (0.0-2.0); EOSINOPHIL # 0.1 TH/MM3 (0-0.4); EOSINOPHIL % 2.7 % (0.0-4.0); HEMATOCRIT 24.6 % (35.0-46.0); HEMOGLOBIN 8.6 GM/DL (11.6-15.3); LYMPH % 40.9 % (9.0-44.0); MEAN CELL VOLUME 87.2 FL (80.0-100.0); MEAN CORPUSCULAR HEMOGLOBIN 30.4 PG (27.0-34.0); MEAN CORPUSCULAR HGB CONC 34.9 % (32.0-36.0); MEAN PLATELET VOLUME 8.2 FL (7.0-11.0); MONO % 14.5 % (0.0-8.0); MONOCYTE # 0.3 TH/MM3 (0-0.9); NEUT % 41.4 % (16.0-70.0); PLATELET COUNT 181 TH/MM3 (150-450); RED BLOOD COUNT 2.82 MIL/MM3 (4.00-5.30); RED CELL DISTRIBUTION WIDTH 14.2 % (11.6-17.2); WHITE BLOOD COUNT 2.3 TH/MM3 (4.0-11.0)
[2017-09-11 05:40] LABS: CALCIUM 8.4 MG/DL (8.5-10.1); CREATININE 0.78 MG/DL (0.50-1.00)
[2017-09-11 08:00] VITALS: BP 104/60; PULSE 80; RESP 18; TEMP 97.7; O2SAT 97
[2017-09-11] MEDS: DOCUSATE SODIUM 50 MG/SENNA 8.6 MG TAB PO SCH (08:29)
[2017-09-11] MEDS: CYCLOBENZAPRINE HCL 10 MG TAB PO SCH (08:29)
[2017-09-11] MEDS: FAMOTIDINE 20 MG TAB PO SCH (08:29)
[2017-09-11] MEDS: SODIUM CHLORIDE 0.9% FLUSH 10 ML FLUSH IV FLUSH SCH (08:30)
[2017-09-11 09:30] VITALS: RESP 18
[2017-09-11] MEDS ORDERED: LEVO750T3 PO (13:24)
[2017-09-11] MEDS ORDERED: OXYC-392 PO (13:24)
[2017-09-11] MEDS ORDERED: XANA1TAB2 PO (13:25)
--- NOTE | 2017-09-11 13:25 | HHI.DCPOC ---
Discharge Care Plan Diagnosis: (1) Pneumonia (2) Sepsis Goals to Promote Your Health * To prevent worsening of your condition and complications * To maintain your health at the optimal level Directions to Meet Your Goals Take your medications as prescribed Follow your dietary instruction Follow activity as directed Keep your appointments as scheduled Take your immunizations and boosters as scheduled If your symptoms worsen call your PCP, if no PCP go to Urgent Care Center or Emergency Room Smoking is Dangerous to Your Health. Avoid second hand smoke Call the 24-hour hour crisis hotline for domestic abuse at Ortega Bentley MD September 11, 2017 13:25
[2017-09-11] MEDS ORDERED: LEVOFLOXACIN 750 MG TAB PO ONE (13:30)
[2017-09-11] MEDS: NAPROXEN 500 MG TAB PO PRN (14:16)
--- NOTE | 2017-09-11 16:03 | HHI.DS ---
Discharge Summary Admission Date September 07, 2017 at 23:45 Discharge Date: September 11, 2017 Admitting Diagnosis sepsis (1) Pneumonia ICD Code: J18.9 - Pneumonia, unspecified organism Procedures none Brief History - From Admission Records reviewed from outside hospital. 32-year-old female with history of IV drug use (heroin), cocaine abuse , prior seizure while in incarceration who presented to [facility] complaining of 2 day history of fever and back pain. She states she has been febrile for 2 days with temperature up to 104.8 yesterday. Her temp at outside hospital was 99.8. She complains of diffuse myalgias, "hurting all over", headache, dizziness, nausea, nonproductive cough, pain in her lower lumbar spine radiating to her right sacrum and down her right leg. She denies dysuria. She has had 2 episodes of diarrhea on 09/04, one episode in which she had fecal incontinence. No urinary incontinence, no saddle parasthesias. She feels her right calf is swollen. She states she had a seizure on July 24, 2017 while she was incarcerated. She is concerned that she was never evaluated for it. She said "they told me I would just stood up too fast". She was released from incarceration 09/04. She began to feel ill on that day and was hospitalized at [facility] from 09/04-09/07 during which time she say she had a CT brain. Results unknown. She left A. Today she presented to [facility] where workup demonstrated pancytopenia with white blood cell count of 1.7, hemoglobin 8.8, platelets 109. CRP is elevated at 27,ESR 58. Coags were normal. Urine drug screen positive for opiates, benzos, cocaine. Urinalysis negative for markers of infection, negative protein, negative ketones. TSH was normal at 2.6. Chest x-ray was negative electrolytes were normal and creatinine is 0.71. Glucose 92. AST mildly elevated at 46 but ALT and alkaline phosphatase normal. Pro-BNP 349. test negative. Blood culture was sent. she was tachycardic at 107 at outside hospital blood pressure was 127/85.b She received vancomycin 1 g IV, Zosyn 3.375 g IV, morphine 4 mg IV , Zofran 8 mg p.o at [facility]. CBC/BMP: 09/11/17 0434 09/11/17 0434 Significant Findings Laboratory Tests Test 09/09/17 15:00 09/09/17 21:44 09/10/17 04:49 09/10/17 06:41 White Blood Count 1.7 TH/MM3 (4.0-11.0) 2.4 TH/MM3 (4.0-11.0) Red Blood Count 2.64 MIL/MM3 (4.00-5.30) 3.04 MIL/MM3 (4.00-5.30) Hemoglobin 7.8 GM/DL (11.6-15.3) 8.9 GM/DL (11.6-15.3) Hematocrit 23.1 % (35.0-46.0) 26.2 % (35.0-46.0) Lymphocytes (%) (Auto) 45.9 % (9.0-44.0) Monocytes (%) (Auto) 17.1 % (0.0-8.0) 13.0 % (0.0-8.0) Neutrophils # (Auto) 0.6 TH/MM3 (1.8-7.7) 1.0 TH/MM3 (1.8-7.7) Lymphocytes # (Auto) 0.8 TH/MM3 (1.0-4.8) Lymphocytes % 49 % (9-44) Monocytes % 11 % (0-8) Neutrophils # (Manual) 0.7 TH/MM3 (1.8-7.7) Ovalocytes 1+ (NORMAL) Calcium Level 8.1 MG/DL (8.5-10.1) 8.2 MG/DL (8.5-10.1) Magnesium Level 2.6 MG/DL (1.5-2.5) Vancomycin Level Trough 3.9 MCG/ML (5.0-10.0) Platelet Count 128 TH/MM3 (150-450) Blood Urea Nitrogen 6 MG/DL (7-18) Albumin 3.0 GM/DL (3.4-5.0) Test 09/10/17 21:45 09/11/17 04:34 Vancomycin Level Trough 12.0 MCG/ML (5.0-10.0) White Blood Count 2.3 TH/MM3 (4.0-11.0) Red Blood Count 2.82 MIL/MM3 (4.00-5.30) Hemoglobin 8.6 GM/DL (11.6-15.3) Hematocrit 24.6 % (35.0-46.0) Monocytes (%) (Auto) 14.5 % (0.0-8.0) Neutrophils # (Auto) 1.0 TH/MM3 (1.8-7.7) Random Glucose 108 MG/DL (74-106) Calcium Level 8.4 MG/DL (8.5-10.1) Estimat Glomerular Filtration Rate 87 ML/MIN (>89) Imaging Last Impressions Thoracic Spine MRI 09/08/17627 Signed Impressions: CONCLUSION: 1. No acute findings. No epidural fluid collections. MRI thoracic spine with a nd without contrast within normal limits for age. Lumbar Spine MRI 09/08/17627 Signed Impressions: CONCLUSION: 1. There is mild broad-based bulging and left lateral bulging at L4-5. 2. Mild focal central bulging with some mild left lateral bulging at L5-S1 3. There is disc dehydration at L4-5 and L5-S1. Cervical Spine MRI 09/08/17627 Signed Impressions: CONCLUSION: 1. Unremarkable cervical spine MRI with and without contrast. Brain MRI 09/08/17627 Signed Impressions: CONCLUSION: 1. No acute intracranial abnormalities. Left maxillary sinus mucosal thickenin g. Lower Extremity Ultrasound 09/08/17 Signed Impressions: CONCLUSION: No evidence of DVT. Chest X-Ray 09/08/17 Signed Impressions: CONCLUSION: 1. Minimal patchy airspace disease in the left lower lung zone which may be at electasis. However, developing pneumonia cannot be excluded in the appropriate clinical setting. If there is continued clinical uncertainty, consider formal P A and lateral views of the chest with maximal inspiratory effort. PE at Discharge Clear lung sounds bilaterally, unlabored breathing Alert and oriented 3 Hospital Course Patient was originally admitted from [facility] to the ICU given her substantial pancytopenia and history of fevers, was started on antibiotics for possible pneumonia. 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 Patient's respiratory status had stabilized, she remained afebrile her blood cultures were negative. Patient was tolerating p.o. intake well and her level of alertness was normalized. Patient has met maximal benefit from hospitalization and is clinically stable for discharge. Pt Condition on Discharge: Stable Discharge Disposition: Discharge Home Discharge Time: <= 30 minutes Discharge Instructions DIET: Follow Instructions for: Heart Healthy Diet Additional Diet Instructions: No driving; no operating of any heavy machinery. Activities you can perform: Weight Bearing as Narendra Follow up Referrals: PCP Follow-up - 1 Week New Medications: Levofloxacin (Levofloxacin) 750 Mg Tablet 750 MG PO DAILY for Infection, #8 TAB 0 Refills Alprazolam (Xanax) 1 Mg Tab 1 MG PO Q8H PRN for ANXIETY, #21 TAB Oxycodone (Oxycodone) 5 Mg Tab 15 MG PO Q8HR PRN for pain, #21 TAB Ortega Bentley MD September 11, 2017 16:02
[2017-09-12] MEDS ORDERED: PHARMACY ORDERED LAB ONE (05:45)
--- NOTE | 2017-09-12 13:29 | MG ---
cc: Sampson Saez MD EEG NUMBER: [id number] INDICATIONS: Sepsis, headache, drug use. MEDICATIONS: Vancomycin, Oxycodone. DESCRIPTION: The recording shows a symmetric 11 Hz, 60 microvolt posterior rhythm. The recording overall is synchronous and symmetric. Normal sleep activity is seen. Hyperventilation is performed without significant change in the background. At times with sleep, some 3 Hz diffuse slowing is seen. The patient did not reach stage II sleep. May be at times the slowing appears a little bit more prominent to the left hemisphere than the right as far as amplitude. Photic stimulation performed without significant posterior driving. IMPRESSION: A normal EEG. No evidence for a focal or diffuse abnormality. Sampson Saez MD DJM/DL , 01:18 PM , 01:27 PM
== END 2017-09-11 16:10 | disposition home or self-care (01) | DRG 871 ==
LOC: N03A 23:45 → N03B 09-08 23:40
PROVIDERS: ADMIT Hospitalist; ATTEND Hospitalist
DX: A41.9 Sepsis, unspecified organism (principal); J18.9 Pneumonia, unspecified organism; D61.818 Other pancytopenia; E87.2 Acidosis; I10 Essential (primary) hypertension; F13.10 Sedative, hypnotic or anxiolytic abuse, uncomplicated; R19.7 Diarrhea, unspecified; D72.821 Monocytosis (symptomatic); M17.12 Unilateral primary osteoarthritis, left knee; M54.31 Sciatica, right side; F11.10 Opioid abuse, uncomplicated; F14.10 Cocaine abuse, uncomplicated; F17.210 Nicotine dependence, cigarettes, uncomplicated; F32.9 Major depressive disorder, single episode, unspecified; F41.9 Anxiety disorder, unspecified
CPT/HCPCS: 70551; 71045; 72156; 72157; 72158; 76937; 80048; 80053; 80074; 80202; 82140; 82150; 82550; 83010; 83605; 83615; 83690; 83735; 84100; 84484; 84702; 85007; 85025; 85027; 85044; 85384; 85610; 85730; 87040; 87641; 93005; 93306; 93971; 94150; 95819; A9579; J0131; J0692; J2270; J3370; J3480; J7030; J7050; J7120